=== PATIENT | male | born 1950 | race Caucasian/White ===

== ENCOUNTER 2022-07-27 13:29 | Emergency (ER) | payer MEDICARE, MEDICAID, SELFPAY ==
[2022-07-27 13:49] VITALS: BP 110/74; PULSE 78; RESP 17; TEMP 36.7; O2SAT 97; BMI 26.6
--- NOTE | 2022-07-27 15:33 | XR_ITS ---
WS: [id number] XR chest 1V portable [id number] REASON FOR EXAM: dyspnea/cough FINDINGS: Moderate tortuosity and ectasia of the thoracic aorta. Heart size at the upper limits of normal. Calcified granulomatous disease bilaterally. Calcifications in the mediastinum, presumed calcified no deshaun related to the calcified granulomatous disease in both hemithoraces. Tenting of the right hemidiaphragm with irregular linear opacities within the left lower lung which a ppear to be parenchymal scarring. A more ill-defined masslike density in the right midlung field cou ld also represent parenchymal scarring however no previous exam for comparison. Old pleural pericardial and pleural thickening in the region of the left costophrenic angle. Moderate degenerative spondylosis in the mid and lower thoracic spine. XR/XR chest 1V portable [id number] IMPRESSION: No definite acute chest abnormality. Chronic appearing old inflammatory changes in the lower hemithoraces as above. No examination for comparison. Recommend follow-up PA and lateral chest to confirm all changes are chronic as presumed.
--- NOTE | 2022-07-27 15:33 | ECG_ITS ---
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 Measurements Intervals [place] Rate: 101 P: 72 LA: 150 QRS: -69 QRSD: 125 T: 78 QT: 366 QTc: 476 Interpretive Statements SINUS TACHYCARDIA RIGHT BUNDLE BRANCH BLOCK [120+ ms QRS DURATION, UPRIGHT V1, 40+ ms S IN I/aVL/V4/V5/V6] LEFT ANTERIOR FASCICULAR BLOCK [QRS AXIS <= -45, QR IN I, RS IN II] No previous ECG available for comparison Electronically Signed On 07-28-2022 7:46:02 WRAPPER OPENER by Alysa Soriano M.D. [id number]
--- NOTE | 2022-07-27 15:53 | W.ED.SOB ---
HPI - SOB/Dyspnea General: Chief Complaint: Shortness of Breath/Dyspnea Stated Complaint: SOB Time Seen by Provider: 07/27/22 15:32 Source: patient Mode of arrival: ambulatory History of Present Illness: HPI Narrative: 71-year-old male presents to the emergency room complaining of feeling weak and short of breath. Patient states he has been short of breath for the last couple of months and week. He says he was at [facility] for 12 days he got transfusions but he does not know particularly why or if there is any source of blood loss. He is very vague about much of it. He tells me he was diagnosed with laryngeal cancer which is why is a very hoarse voice he finished the full course of treatment and a few years ago stopped all of his other medications. 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 He denies hematochezia melena symptoms cough tenderness hematuria he has no chest pain no difficulty with bowel or bladder no abdominal pain. Has not had any fever sweats chills or productive cough. MD elicited complaint: shortness of breath Pertinent past history: COPD Onset (ago): week(s) Timing: constant and progressively worsening Severity: mild Exacerbating factors: nothing Relieving factors: nothing Known history of: COPD Associated symptoms: Deny abdominal pain, chest congestion, chest pain, cough, diaphoresis, dizziness, extremity pain, fever(s), hemoptysis, lightheadedness, myalgias, nausea, orthopnea, palpitations, paresthesias, polydipsia, polyuria, rash, sense of impending doom, syncope or vomiting Treatment prior to arrival: none Review of Systems Const: Reports: fatigue and malaise; Denies: fever(s), chills or diaphoresis ENMT: Denies: throat pain, ear or mastoid pain, nasal discharge or nasal congestion Card: Denies: chest pain, palpitations, lightheadedness, syncope or orthopnea Resp: Reports: dyspnea; Denies: productive cough, non-productive cough, wheezing, hemoptysis or chest congestion GI: Denies: abdominal pain, nausea or vomiting : Denies: flank pain, difficulty urinating, dysuria, urinary frequency or urinary urgency Musc: Denies: neck pain, back pain or extremity pain Skin/Breast: Denies: rash or pruritus Neuro: Denies: dizziness Endo: Denies: polyuria or polydipsia PFSH ED PFSH: Medical History (Updated 07/28/22 @ 06:49 by Vick Maloney DO) Anemia Pharyngeal cancer Social History (Updated 07/27/22 @ 16:01 by Vick Maloney DO) Smoking and tobacco status: former smoker Alcohol intake: current Physical Exam Const: COMMON NORMALS: no acute distress GENERAL APPEARANCE: cooperative and comfortable ORIENTATION/CONSCIOUSNESS: Yes awake, Yes oriented to person, Yes oriented to place and Yes oriented to time HENMT: COMMON NORMALS: normocephalic, atraumatic and hearing grossly normal bilaterally HEAD & SCALP: normocephalic and atraumatic Lymph: LYMPHATIC: no lymphadenopathy noted and no lymphedema noted Resp: COMMON NORMALS: normal respiratory effort, No retractions, No use of accessory muscles and clear to auscultation bilaterally AUSCULTATION: clear to auscultation bilaterally Cardio: COMMON NORMALS: regular rate, regular rhythm and No murmurs present (Cardio) RATE: regular rate RHYTHM: regular rhythm GI: COMMON NORMALS: Soft to palpation and No hepatosplenomegaly present AUSCULTATION: Yes normoactive bowel sounds PALPATION: Yes Soft to palpation, No Tenderness to palpation present (GI), No Guarding due to palpation present (GI) and Yes No hepatosplenomegaly present Extremity: COMMON NORMALS: normal to inspection, capillary refill normal, no clubbing, cyanosis or edema, no calf tenderness and no pedal edema Neuro: SENSORIUM/ORIENTATION: Yes oriented to person, Yes oriented to place and Yes oriented to time Skin: COMMON NORMALS: no rashes or lesions noted GENERAL SKIN EXAM: no rashes or lesions noted Course Vital Signs: Vital signs: Vital Signs Temperature 98.0 F 07/27/22 13:49 Pulse Rate 100 07/27/22 19:20 Respiratory Rate 20 H 07/27/22 19:20 Blood Pressure 126/84 07/27/22 19:20 Pulse Oximetry 99 07/27/22 19:20 Oxygen Delivery Me thod 07/27/22 13:49 MDM - SOB/Dyspnea Medical Decision Making Pancytopenia which is quite pronounced in all of the cell lines. He will need hematology oncology evaluation as well as transfusions of platelets and packed red blood cells. Initiation of blood transfusion started here initial anemia labs ordered as well. Discussed with hospitalist at [facility] they will accept on transfer reviewed findings with the patient. He is been placed on reverse isolation. Medical Records I reviewed the patient's medical records. Lab Data I reviewed the patient's lab results. 07/27/22 16:42 07/27/22 12:12 Labs/Radiology: Radiology Impressions Chest X-Ray 07/27/22 15:33 IMPRESSION: No definite acute chest abnormality. Chronic appearing old inflammatory changes in the lower hemithoraces as above. No examination for comparison. Recommend follow-up PA and lateral chest to confirm all changes are chronic as presumed. Laboratory Results WBC 1.1 10^3/uL (4.0-10.0) L 07/27/22 16:42 Corrected WBC Cancelled 07/27/22 12:12 RBC 1.86 10^6/uL (4.1-5.3) L 07/27/22 16:42 Hgb 6.0 g/dL (11.7-16.6) L* 07/27/22 16:42 Hct 18.6 % (42.0-52.0) L* 07/27/22 16:42 MCV 100.0 fl (80-94) H 07/27/22 16:42 MCH 32.3 pg (28.0-34.0) 07/27/22 16:42 MCHC 32.3 g/dL (30.0-36.0) 07/27/22 16:42 RDW 20.3 % (12.1-15.1) H 07/27/22 16:42 Plt Count 12 10^3/cmm (130-400) L* 07/27/22 16:42 MPV 11.2 fL (7.4-10.4) H 07/27/22 16:42 Gran % Cancelled 07/27/22 12:12 Neut % (Auto) 3.6 % 07/27/22 16:42 Lymph % (Auto) 88.1 % 07/27/22 16:42 [place] % (Auto) 3.7 % 07/27/22 16:42 Eos % (Auto) 0.9 % 07/27/22 16:42 Baso % (Auto) 0.0 % 07/27/22 16:42 Reticulocyte % (Auto) 0.5 % (0.5-2.0) 07/27/22 16:12 Neut # (Auto) 0.04 10^3/uL (1.8-7.7) L* 07/27/22 16:42 Lymph # (Auto) 1.0 10^3/uL (0.8-4.8) 07/27/22 16:42 [place] # (Auto) 0.0 10^3/uL (0.2-0.9) L 07/27/22 16:42 Eos # (Auto) 0.0 10^3/uL (0.0-0.8) 07/27/22 16:42 Baso # (Auto) 0.0 10^3/uL (0.0-0.1) 07/27/22 16:42 Absolute Gran (auto) Cancelled 07/27/22 12:12 Nucleated RBC % (auto) 0 % 07/27/22 16:42 Nucleated RBCs # 0.0 /100WBC 07/27/22 16:42 Haptoglobin 262.0 mg/L (30-200) H 07/27/22 16:12 PT 13.80 SECONDS (12.1-14.9) 07/27/22 12:12 INR 1.03 (0.8-1.2) 07/27/22 12:12 APTT 29.4 SECONDS (23.9-36.7) 07/27/22 12:12 Sodium 138 mmol/L (136-145) 07/27/22 12:12 Potassium 4.5 mmol/L (3.5-5.1) 07/27/22 12:12 Chloride 102 mmol/L (98-107) 07/27/22 12:12 Carbon Dioxide 26 mmol/L (22-29) 07/27/22 12:12 Anion Gap 14.5 (5-19) 07/27/22 12:12 BUN 27 mg/dL (8-23) H 07/27/22 12:12 Creatinine 1.0 mg/dL (0.7-1.2) 07/27/22 12:12 GFR Calculation 74.1 mL/min (90-130) L 07/27/22 12:12 Glucose 115 mg/dL (65-115) 07/27/22 12:12 Calculated Osmolality 292 mOsm/kg (285-295) 07/27/22 12:12 Calcium 9.2 mg/dL (8.5-10.5) 07/27/22 12:12 Iron 176 ug/dL (59-158) H 07/27/22 16:12 TIBC 214 mcg/dl 07/27/22 16:12 % Saturation 82.2 % (20-50) H 07/27/22 16:12 Unsat Iron Binding 38 ug/dL (112-347) L 07/27/22 16:12 Ferritin 1141 ng/mL (30-400) H 07/27/22 16:12 Total Bilirubin 0.3 mg/dL (0.15-1.2) 07/27/22 12:12 AST 20 U/L (0-40) 07/27/22 12:12 ALT 16 U/L (0-41) 07/27/22 12:12 Alkaline Phosphatase 88 U/L (40-130) 07/27/22 12:12 NT-Pro-B Natriuret Pep 3701 pg/mL (0-125) H 07/27/22 12:12 Total Protein 7.2 g/dL (6.6-8.7) 07/27/22 12:12 Albumin 3.8 g/dL (3.5-5.2) 07/27/22 12:12 Globulin 3.4 g/dL (1.3-4.6) 07/27/22 12:12 Vitamin B12 370 pg/mL (232-1245) 07/27/22 16:12 Folate 14.3 ng/mL (4.5-32.2) 07/27/22 16:12 Blood Type A Positive 07/27/22 17:15 Rho(D) Type Positive 07/27/22 17:15 Antibody Screen Negative 07/27/22 17:15 Discharge Plan Discharge Patient Disposition: Xfer Short-Term Hosp Clinical Impression: Pancytopenia, Pharyngeal cancer Condition: Stable Coding Level of Care Code ED Media Relations Coordinator for Chg Fwd Exam Comprehensive
[2022-07-27 15:56] VITALS: BP 116/63; PULSE 98; RESP 20; O2SAT 100
[2022-07-27] MEDS: sodium chloride 0.9% 1,000 ML 999 ML IV (16:03)
[2022-07-27 16:40] LABS: INR 1.03 (0.8-1.2); Partial Thromboplastin Time 29.4 SECONDS (23.9-36.7)
[2022-07-27 16:45] LABS: Alanine Aminotransferase 16 U/L (0-41); Albumin Level 3.8 g/dL (3.5-5.2); Alkaline Phosphatase 88 U/L (40-130); Anion Gap 14.5 (5-19); Aspartate Amino Transferase 20 U/L (0-40); Blood Urea Nitrogen 27 mg/dL (8-23); Calcium 9.2 mg/dL (8.5-10.5); Carbon Dioxide 26 mmol/L (22-29); Chloride 102 mmol/L (98-107); Globulin 3.4 g/dL (1.3-4.6); Glomerular Filtration Rate 74.1 mL/min (90-130); Glucose 115 mg/dL (65-115); Osmolality Calculated 292 mOsm/kg (285-295); Potassium 4.5 mmol/L (3.5-5.1); Sodium 138 mmol/L (136-145); Total Bilirubin 0.3 mg/dL (0.15-1.2); Total Protein 7.2 g/dL (6.6-8.7)
[2022-07-27 16:52] VITALS: BP 116/63; PULSE 100; RESP 15; O2SAT 100
--- NOTE | 2022-07-27 16:52 | PC.NURSE ---
PT PLACED ON CONTINUOUS NIBP, SPO2, AND CM
[2022-07-27 16:56] LABS: Eosinophils % 0.9 %; Lymphocytes % 88.1 %; Mean Corpuscular HGB Conc 32.3 g/dL (30.0-36.0); Mean Corpuscular Hemoglobin 32.3 pg (28.0-34.0); Mean Platelet Volume 11.2 fL (7.4-10.4); Monocytes % 3.7 %; Neutrophils % 3.6 %; Nucleated Red Blood Cells % 0 %; Red Blood Count 1.86 10^6/uL (4.1-5.3); Red Cell Distribution Width 20.3 % (12.1-15.1); White Blood Count 1.1 10^3/uL (4.0-10.0)
[2022-07-27 17:01] LABS: Hematocrit 18.6 % (42.0-52.0); Neutrophils # 0.04 10^3/uL (1.8-7.7); Platelet Count 12 10^3/cmm (130-400)
[2022-07-27 17:16] LABS: NT Pro B Type Natriuretic Pept 3701 pg/mL (0-125)
[2022-07-27 17:37] VITALS: BP 150/87; PULSE 99; RESP 95; O2SAT 18
[2022-07-27 17:37] LABS: Reticulocyte % 0.5 % (0.5-2.0)
--- NOTE | 2022-07-27 17:37 | PC.NURSE ---
PT PLACED ON REVERSE ISOLATION PRECAUTIONS
[2022-07-27 17:50] LABS: Iron 176 ug/dL (59-158); Percent Saturation 82.2 % (20-50); Total Iron Binding Capacity 214 mcg/dl; Unsaturated Iron Binding 38 ug/dL (112-347)
[2022-07-27 18:04] LABS: Vitamin B12 370 pg/mL (232-1245)
[2022-07-27 18:17] LABS: Ferritin 1141 ng/mL (30-400)
[2022-07-27 18:30] VITALS: BP 131/82; PULSE 100; RESP 20; O2SAT 99
[2022-07-27 19:15] LABS: Folate Level 14.3 ng/mL (4.5-32.2)
[2022-07-27 19:20] VITALS: BP 126/84; PULSE 100; RESP 20; O2SAT 99
== END 2022-07-27 19:19 | disposition short-term general hospital (02) ==
PROVIDERS: Emergency Provider Family Medicine
DX: D61.818 Other pancytopenia (principal); C14.0 Malignant neoplasm of pharynx, unspecified; Z87.891 Personal history of nicotine dependence
CPT/HCPCS: 36415; 71045; 80053; 82607; 82668; 82728; 82746; 83010; 83540; 83550; 83880; 85025; 85045; 85610; 85730; 86850; 86900; 87040; 93005; 99285; J7030